=== PATIENT | female | born 1990 | race Caucasian/White ===

== ENCOUNTER 2021-11-06 12:31 | Emergency (ER) | payer MEDICAID ==
[~2021-11-06] VITALS: Ht 167.6 cm; Wt 117.7 kg
[2021-11-06] MEDS ORDERED: normal saline 1000ml 1,000 ML IV ONE (13:30)
[2021-11-06] MEDS ORDERED: ampicillin/sulbac 3gm/NS 100ml 100 ML IV ONE (13:35)
[2021-11-06] MEDS ORDERED: ketorolac trometh. 30mg/ml inj. IM ONE (13:35)
[2021-11-06 13:51] LABS: BASOPHILS # (AUTO) 0.1 X10'3 (0-0.2); BASOPHILS % (AUTO) 0.6 % (0-1); EOSINOPHILS # (AUTO) 0.3 X10'3 (0-0.9); EOSINOPHILS % (AUTO) 3.1 % (0-6); HEMATOCRIT 45.1 % (35.0-45.0); HEMOGLOBIN 15.3 g/dl (12.0-16.0); LYMPHOCYTES % (AUTO) 18.9 % (21-51); MEAN CORPUSCULAR HEMOGLOBIN 32.2 PG (27.0-31.0); MEAN CORPUSCULAR HGB CONC 33.9 g/dL (33.0-36.5); MEAN PLATELET VOLUME 8.4 FL (7.4-10.4); MONOCYTES # (AUTO) 0.5 X10'3 (0-0.9); MONOCYTES % (AUTO) 5.1 % (2-12); NEUTROPHILS # (AUTO) 7.6 X10'3 (1.8-7.7); NEUTROPHILS % (AUTO) 72.3 % (42-75); PLATELET COUNT 310 X10'3 (140-440); RED BLOOD COUNT 4.75 X10'6 (4.20-5.60); RED CELL DISTRIBUTION WIDTH 13.5 % (11.5-14.5); WHITE BLOOD COUNT 10.5 X10'3 (4.5-11.0)
[2021-11-06 14:03] LABS: ALANINE AMINOTRANSFERASE 34 U/L (12-78); ALBUMIN 3.4 G/DL (3.4-5.0); ALBUMIN/GLOBULIN RATIO 0.9 (1.1-1.5); ALKALINE PHOSPHATASE 89 IU/L (46-116); ANION GAP 9 (8-16); ASPARTATE AMINO TRANSFERASE 18 U/L (10-37); BILIRUBIN,TOTAL 0.4 MG/DL (0.1-1.0); BLOOD UREA NITROGEN 6 MG/DL (7-18); BUN/CREATININE RATIO 7.4 (6.6-38.0); CALCIUM 8.6 MG/DL (8.5-10.1); CHLORIDE 105 MMOL/L (99-107); CREATININE 0.81 MG/DL (0.40-0.90); GLUCOSE 100 MG/DL (70-104); POTASSIUM 3.7 MMOL/L (3.5-5.1); SODIUM 141 MMOL/L (135-145); TOTAL CARBON DIOXIDE 27.3 MMOL/L (24-32); TOTAL PROTEIN 7.2 G/DL (6.4-8.2); eGFR 83 ML/MIN
[2021-11-06] MEDS ORDERED: iohexol 300mg/ml 100ml inj. ONE (14:08)
[2021-11-06 14:16] LABS: HCG SERUM QL NEGATIVE
[2021-11-06] MEDS ORDERED: AMOX-117 PO ×3 (15:07→15:12)
[2021-11-06] MEDS ORDERED: IBUP-1985 PO ×3 (15:07→15:12)
[2021-11-06] MEDS ORDERED: amox tr/potassium clavulanate 875/125mg TAB PO ONE (15:10)
[2021-11-06 15:41] VITALS: BP 147/102
== END 2021-11-06 15:43 | disposition home or self-care (01) ==
LOC: ER 12:32
DX: K04.7 Periapical abscess without sinus (principal); F17.200 Nicotine dependence, unspecified, uncomplicated; Z88.6 Allergy status to analgesic agent; Z88.5 Allergy status to narcotic agent; Z79.899 Other long term (current) drug therapy
CPT/HCPCS: 36415; 70492; 80053; 83605; 84145; 84703; 85025; 87040; 96361; 96365; 96372; 99285; J0295; J1885; J3490; J7030; Q9967; 99284